=== PATIENT | male | born 1975 | race Native Hawaiian/Other Pacific Islander ===

== ENCOUNTER 2017-09-17 09:08 | Emergency (ER) | payer OTHER ==
[~2017-09-17] VITALS: Ht 195.6 cm; Wt 151.0 kg
[2017-09-17 13:52] LABS: PLATELET COUNT 207 K/uL (142-355)
[2017-09-17 14:13] LABS: POTASSIUM 4.6 mmol/L (3.6-5.2)
[2017-09-17 14:33] VITALS: BP 126/68; TEMP 97.3
== END 2017-09-17 14:44 | disposition home or self-care (01) ==
LOC: ED 09:08
PROVIDERS: Emergency Medicine
DX: N20.1 Calculus of ureter (principal)
CPT/HCPCS: 36415; 80053; 81000; 85027; 96365; 96374; 96375; 99284; J1170; J1885; J2405